=== PATIENT | female | born 1990 | race Asian ===

== ENCOUNTER 2021-01-02 23:32 | Emergency (ER) | payer OTHER ==
[2021-01-02 23:44] VITALS: BMI 25.0
[2021-01-03] MEDS ORDERED: ACETAMINOPHEN 325 MG TABLET (FP) PO ONE (00:42)
[2021-01-03] MEDS ORDERED: IBUPROFEN 400 MG TABLET (FP) PO ONE ×3 (00:42→10:18)
[2021-01-03 11:24] VITALS: BP 104/52; PULSE 82; TEMP 98.2
== END 2021-01-03 11:20 | disposition home or self-care (01) ==
LOC: JER 23:32
DX: R51.9 Headache, unspecified (principal); M25.512 Pain in left shoulder
CPT/HCPCS: 73060-TC-LT-FY; 99283-25